=== PATIENT | female | born 2000 | race Two or more races ===

== ENCOUNTER 2019-09-14 02:45 | Emergency (ER) | payer SELFPAY ==
[~2019-09-14] VITALS: Ht 162.6 cm; Wt 63.5 kg
[2019-09-14 02:48] VITALS: BP 133/75
[2019-09-14] MEDS ORDERED: IBUPROFEN 400 MG TABLET ONE (03:23)
[2019-09-14] MEDS ORDERED: IBUPROFEN 400 MG TABLET PO ONE (03:30)
== END 2019-09-14 03:27 | disposition home or self-care (01) ==
LOC: ER 02:47
DX: S63.694A Other sprain of right ring finger, initial encounter (principal); Z88.1 Allergy status to other antibiotic agents; W22.8XXA Striking against or struck by other objects, initial encounter; Y93.89 Activity, other specified; Y92.89 Other specified places as the place of occurrence of the external cause; Y99.8 Other external cause status
CPT/HCPCS: 73130-TC